=== PATIENT | female | born 1950 | race Caucasian/White ===

== ENCOUNTER 2018-07-04 11:38 | Inpatient (IN) | payer MEDICARE, OTHER ==
[~2018-07-04] VITALS: Ht 182.9 cm; Wt 81.6 kg
[~2018-07-04 11:38] MED LIST: ADULT LOW DOSE81 MG PO; AMBIEN 10 MG TA10 MG PO; AMBIEN 5 MG TABL5 M1 PO; CARDIZEM CD180 MG PO; CLARITIN10 MG PO; CLONIDINE0.1 PO; DEXILANT60 MG; EEMT HS 0.625-1 EACH PO; ESTRADIOL 1 MG T1 M1 TRANSDERM; FISH OIL 1,001000 M2 PO; IMDUR 30 MG TAB30 M1 PO; KLOR-CON 1010 MEQ PO; LISINOPRIL2.5 MG PO; METOPROLOL SUCC25 M1; METOPROLOL SUCC50 MG PO; MIRALAX17 GM PO; MIRALAX255 GM PO; MULTAQ 400 MG400 MG PO; MULTIVITAMINS PO; NORCO 5-325 TA1 EAC1 PO; NORVASC 2.5 MG2.5 M1 PO; NORVASC2.5 MG PO; OSCIMIN0.125 MG; PERCOCET 5-3251 EACH PO; PERCOCET 7.5-31 EACH PO; PERCOCET PO; PHOSPHA NEUTRAL1 TA1 PO; PRADAXA75 MG PO; PREBIOTIC FIBER PO; PREMARIN0.3 MG PO; PROMS25 WY RECTAL; PROPAFENONE 15150 MG PO; PROTONIX40 M1 PO; PROZAC 20 MG20 M1; PROZAC20 MG PO; RYTHMOL SR225 MG PO; SODIUM BICARBO650 M3 PO; SYMBYAX 3-25 M1 EACH PO; TOPROL XL25 MG; TUMS E.S.750 MG PO; TYLENOL325 MG PO; VITAMIN D1000 UNI1 PO; VITAMINC500 PO; WELLBUTRIN 100100 MG PO; XANAX 0.25 MG0.25 MG PO; ZEMPLAR2 MCG PO; ZOFRAN ODT4 MG DISSOLVE; ZOFRAN ODT4 MG PO; ZOFRAN8 MG PO; [UNRECOGNIZED DRUG - OTHER] TOP
[2018-07-04 11:47] VITALS: BP 162/99
[2018-07-04] MEDS ORDERED: METOPROLOL SUCC50 MG PO (12:01)
[2018-07-04] MEDS ORDERED: HYDROCHLOROTHIA25 M2 PO (12:03)
[2018-07-04] MEDS ORDERED: LYRICA25 MG PO (12:03)
[2018-07-04 12:07] LABS: URINE BILIRUBIN NEGATIVE (Negative); URINE BLOOD NEGATIVE (Negative); URINE CLARITY CLEAR; URINE COLOR YELLOW; URINE GLUCOSE-RANDOM NEGATIVE (Negative); URINE KETONES NEGATIVE (Negative); URINE LEUKOCYTES-REFLEX NEGATIVE (Negative); URINE NITRITE-REFLEX NEGATIVE (Negative); URINE PROTEIN NEGATIVE (Negative); URINE UROBILINOGEN 0.2 E.U./dl (0.2-1.0)
[2018-07-04 12:10] LABS: HEMATOCRIT 46.4 % (37.0-47.0); HEMOGLOBIN 15.5 gm/dL (12.0-15.0); MCH 30.8 pg (26.0-34.0); MCHC 33.4 g/dL (28.0-37.0); MCV 92.2 fL (80.0-100.0); MPV 7.2 fl. (7.2-11.1); NUCLEATED RBCS 0 /100WBC; PLATELET COUNT* 273 thou/uL (150-400); RBC 5.03 mil/uL (4.20-5.00); RDW-CV 15.2 % (10.5-14.5); WBC 13.6 thou/uL (4.0-11.0)
[2018-07-04 12:19] LABS: ANION GAP 4 mmol/L (7-16); BUN 29 mg/dL (7-18); CALCIUM 8.7 mg/dL (8.5-10.1); CHLORIDE 94 mmol/L (98-107); CO2 33 mmol/L (21-32); CREATININE 1.8 mg/dL (0.6-1.3); GLUCOSE 115 mg/dL (70-99); POTASSIUM 3.5 mmol/L (3.5-5.1); SODIUM 131 mmol/L (136-145)
[2018-07-04 12:23] LABS: APTT 30.3 Seconds (25.0-31.3); INR 1.1; PROTIME 10.7 Seconds (9.20-11.50)
[2018-07-04 12:31] LABS: ALBUMIN 3.9 g/dL (3.4-5.0); ALKALINE PHOSPHATASE 51 U/L (46-116); NT-PRO BRAIN NAT PEPTIDE 279 pg/mL (<300); SGOT 18 U/L (15-37); SGPT 21 U/L (30-65); TOTAL BILIRUBIN 2.3 mg/dL (<0.1-1.0); TOTAL PROTEIN 7.5 g/dL (6.4-8.2); TROPONIN-I LEVEL <0.06 ng/mL (<0.06)
[2018-07-04 12:39] LABS: ABSOLUTE EOSINOPHILS 0.1 thou/uL (0.0-0.7); ABSOLUTE LYMPHOCYTES 1.6 thou/uL (0.8-5.3); ABSOLUTE MONOCYTES 0.7 thou/uL (0.0-1.2); ABSOLUTE NEUTROPHILS 11.2 thou/uL (1.6-8.1); PLATELET ESTIMATE ADEQUATE
[2018-07-04 14:05] VITALS: BP 127/77
--- NOTE | 2018-07-04 14:30 | NUR ---
ADMIT NOTE - PT ADMITED TO [facility] FROM ED THIS AFTERNOON. PT C/O N/V THIS AM AND PRESENTED TO ER D/T SAME. IV L HAND 20G INFUSING NS 100ML/HR. ROUTINE VS. UP WITH ASSIST TO BR. PT C/O MILD HERNANDEZ BUT NOT REQUIRING ANY MEDICATIONS AT THIS TIME. PT ORIENTED TO ROOM AND CALL LIGHT SYSTEM.
[2018-07-04 14:39] VITALS: BP 127/81
--- NOTE | 2018-07-04 15:35 | EKG ---
[place] [address] ELECTROCARDIOGRAM REPORT Name: EZ SOLITARIO Room: [address] ADM IN M.R.#: [id number] Admission: 07/04/18 Attend Phys: Cheryl Godoy MD Discharge: Date of : 48 Report #: [id number] THIS REPORT FOR: //name// [facility] ED Test Date: 2018-07-04 Test Time: 12:34:42 Pat Name: EZ SOLITARIO Department: Room: [facility] Gender: F Toe Former: Samia BOUCHER : 1950 Requested By: Ihsan Mims Order Number: [id number] MD: Vinicius Christianson Measurements Intervals [place] Rate: 60 P: [place]: 232 QRS: -55 QRSD: 120 T: 2 QT: 438 QTc: 438 Interpretive Statements Atrial-paced rhythm Incomplete RBBB and LAFB Compared to ECG 06/06/2017 11:50:37 Incomplete right bundle-branch block now present Sinus bradycardia no longer present Electronically Signed On 07-04-2018 15:35:06 CDT by Vinicius Christianson [email or web address] <ELECTRONICALLY SIGNED> By: Vinicius Christianson MD, [facility] 07/04/18 1535 1234 1234 Vinicius Christianson MD, [facility] /EPI
[2018-07-05 00:11] VITALS: BP 101/72
[2018-07-05 04:18] LABS: HEMATOCRIT 43.5 % (37.0-47.0); HEMOGLOBIN 14.4 gm/dL (12.0-15.0); MCH 30.9 pg (26.0-34.0); MCHC 33.2 g/dL (28.0-37.0); MCV 93.1 fL (80.0-100.0); MPV 7.6 fl. (7.2-11.1); RBC 4.67 mil/uL (4.20-5.00); RDW-CV 14.9 % (10.5-14.5); WBC 6.9 thou/uL (4.0-11.0)
[2018-07-05 04:48] LABS: ALBUMIN 2.9 g/dL (3.4-5.0); CALCIUM 8.6 mg/dL (8.5-10.1); CREATININE 1.5 mg/dL (0.6-1.3); MAGNESIUM 1.7 mg/dL (1.8-2.4); TOTAL BILIRUBIN 2.3 mg/dL (<0.1-1.0)
[2018-07-05 04:50] LABS: POTASSIUM 4.6 mmol/L (3.5-5.1)
--- NOTE | 2018-07-05 06:09 | NUR ---
ASSESSMENT COMPLETE. PT SLEPT THROUGH THE NIGHT WITHOUT ANY CONCERNS. PT DENIES N/V DURING THE NIGHT. IV FLUIDS INFUSING. PT IS ON ROOM AIR. PT IS UP TO BATHROOM STANDBY ASSIST WITH STEADY GAIT. PT DENIES NEED FOR PAIN MEDICATION. SEE ASSESSMENT AND VITALS FOR OTHER DETAILS. CALL LIGHT WITHIN REACH, WILL CONTINUE PLAN OF CARE
[2018-07-05 08:00] VITALS: BP 143/88
[2018-07-05 11:33] VITALS: BP 143/88
--- NOTE | 2018-07-05 11:55 | NUR ---
PATIENT A&OX4, ROOM AIR, IV LEFT HAND FLUIDS INFUSSING. IV DISCONTINUED, CATHETER FULLY INTACT. UP AD LIV, STEADY GAIT. DENIES C/O PAIN/N/V. NO OTHER CONCERNS AT THIS TIME. PATIENT DISCHARGED, REVIEWED PAPERWORK WITH PATIENT WHILE SPOUSE AT BEDSIDE. ALL QUESTIONS AND CONCERNS ANSWERED. PATIENT LEFT UNIT AT 1145 AMBULATORY WITH ALL BELONGINGS, NOTHING LEFT BEHIND. APPROPRAITE AND COOPORATIVE WITH CARE.
== END 2018-07-05 11:45 | disposition home or self-care (01) | DRG 682 ==
LOC: M.ERS 11:38 → M.TBA-ER 13:10 → M.3W 13:10
PROVIDERS: Family Medicine; ADMIT Internal Medicine
DX: N17.9 Acute kidney failure, unspecified (principal); R65.11 Systemic inflammatory response syndrome (SIRS) of non-infectious origin with acute organ dysfunction; I48.92 Unspecified atrial flutter; E87.1 Hypo-osmolality and hyponatremia; G43.909 Migraine, unspecified, not intractable, without status migrainosus; N18.4 Chronic kidney disease, stage 4 (severe); E86.0 Dehydration; I48.91 Unspecified atrial fibrillation; G13.0 Paraneoplastic neuromyopathy and neuropathy; I10 Essential (primary) hypertension; F32.9 Major depressive disorder, single episode, unspecified; E11.42 Type 2 diabetes mellitus with diabetic polyneuropathy; H91.93 Unspecified hearing loss, bilateral; Z87.891 Personal history of nicotine dependence; Z85.43 Personal history of malignant neoplasm of ovary; Z92.21 Personal history of antineoplastic chemotherapy; Z90.710 Acquired absence of both cervix and uterus; Z93.3 Colostomy status; Z79.899 Other long term (current) drug therapy; Z88.8 Allergy status to other drugs, medicaments and biological substances; Z91.048 Other nonmedicinal substance allergy status; Z82.49 Family history of ischemic heart disease and other diseases of the circulatory system; Z83.3 Family history of diabetes mellitus

== ENCOUNTER 2019-10-13 08:38 | Observation (INO) | payer OTHER, MEDICARE ==
[~2019-10-13] VITALS: Ht 162.6 cm; Wt 84.2 kg
[2019-10-13] VITALS (7 sets, daily range): BP systolic 150–199; BP diastolic 83–113
[~2019-10-13 08:38] MED LIST changes: +CLONIDINE HCL0.1 M1 PO; +HYDROCHLOROTHIA25 M2 PO; +LYRICA25 MG PO
[2019-10-13] MEDS ORDERED: BUSPIRONE HCL10 MG PO (09:01)
[2019-10-13] MEDS ORDERED: DEPLIN-ALGAL O1 EAC1 PO (09:02)
[2019-10-13 09:03] LABS: ABSOLUTE EOSINOPHILS 0.2 thou/uL (0.0-0.7); ABSOLUTE LYMPHOCYTES 1.4 thou/uL (0.8-5.3); ABSOLUTE MONOCYTES 0.4 thou/uL (0.0-1.2); ABSOLUTE NEUTROPHILS 3.1 thou/uL (1.6-8.1); BASOPHILS 0.7 %; EOSINOPHILS 3.2 %; HEMATOCRIT 47.3 % (37.0-47.0); HEMOGLOBIN 16.3 gm/dL (12.0-15.0); LYMPHOCYTES 27.6 %; MCH 31.7 pg (26.0-34.0); MCHC 34.4 g/dL (28.0-37.0); MCV 92.1 fL (80.0-100.0); MONOCYTES 8.5 %; MPV 7.2 fl. (7.2-11.1); NUCLEATED RBCS 0 /100WBC; PLATELET COUNT* 265 thou/uL (150-400); RBC 5.14 mil/uL (4.20-5.00); RDW-CV 13.9 % (10.5-14.5); WBC 5.1 thou/uL (4.0-11.0)
[2019-10-13] MEDS ORDERED: ELIQUIS5 MG PO (09:03)
[2019-10-13] MEDS ORDERED: FLEXERIL PO (09:03)
[2019-10-13] MEDS ORDERED: MECLIZINE HCL25 M1 PO (09:04)
[2019-10-13 09:13] LABS: CALCIUM 9.8 mg/dL (8.5-10.1); POTASSIUM 3.3 mmol/L (3.5-5.1)
[2019-10-13 09:14] LABS: INR 1.1; PROTIME 11.7 Seconds (9.20-11.50)
[2019-10-13 09:18] LABS: ALBUMIN 3.5 g/dL (3.4-5.0); TOTAL BILIRUBIN 1.4 mg/dL (<0.1-1.0); TOTAL PROTEIN 7.5 g/dL (6.4-8.2)
--- NOTE | 2019-10-13 09:43 | NUR ---
PT PACE MAKER INFO FAXED TO MRI.
--- NOTE | 2019-10-13 11:42 | NUR ---
ADMIT TO 221 TELEPHONE REPORT GIVEN PRIOR TO ARRIVAL PATIENT ORIENTED TO AND CALL LIGHT PATIENT DENIES PAIN ASSMNT AND HX TO BE COMPLETED
--- NOTE | 2019-10-13 13:42 | 2DMMODE ---
[place] [address] 2 D/M-MODE ECHOCARDIOGRAM Name: EZ SOLITARIO Room: [address] IN [facility]#: [id number] Admission: 10/13/19 Attend Phys: Amelia santana Sa Discharge: Date of : 48 Date of Service: 10/13/19 1342 Report #: [id number] THIS REPORT FOR: //name// APPROVED REPORT Study performed: 10/13/2019 11:05:45 EXAM: Comprehensive 2D, Doppler, and color-flow Echocardiogram Patient Location: In-Patient Room #: [facility] Status: routine BSA: 2.01 HR: 64 bpm BP: 160/83 mmHg Rhythm: NSR Other Information Study Quality: Good Indications CVA/TIA Echo Enhancing Agent Indication: Rule out Shunt Agent(s) / Amount(s) Used: Agitated Saline 10 cc 2D Dimensions IVSd: 9.96 (7-11mm) LVOT Diam: 19.08 (18-24mm) LVDd: 44.53 mm PWd: 10.12 (7-11mm) Ascending Ao: 32.32 (22-36mm) LVDs: 27.73 (25-40mm) Aortic Root: 31.21 mm Volumes Left Atrial Volume (Systole) LA ESV Index: 22.30 mL/m2 Aortic Valve AoV Peak Ty.: 1.41 m/s AO Peak Gr.: 7.97 mmHg LVOT Max P.14 mmHg AO Mean Gr.: 4.25 mmHg LVOT Mean P.39 mmHg LVOT Max V: 1.13 m/s AO V2 VTI: 30.28 cm LVOT Mean V: 0.70 m/s SABRINA (VTI): 2.53 cm2 LVOT V1 VTI: 26.78 [place] [address] 2 D/M-MODE ECHOCARDIOGRAM Name: EZ SOLITARIO Room: [address] IN .R.#: [id number] Admission: 10/13/19 Attend Phys: Amelia santana Sa Discharge: Date of : 48 Date of Service: 10/13/19 1342 Report #: [id number] Mitral Valve E/A Ratio: 0.69 MV Decel. Time: 182.33 ms MV E Max Ty.: 0.77 m/s MV PHT: 52.88 ms MVA (PHT): 4.16 cm2 TDI E/Lateral E': 8.56 E/Medial E': 8.56 Medial E' Ty.: 0.09 m/s Lateral E' Ty.: 0.09 m/s Pulmonary Valve PV Peak Ty.: 0.79 m/s PV Peak Gr.: 2.51 mmHg Tricuspid Valve RAP Estimate: 5.00 mmHg TR Peak Gr.: 18.44 mmHg RVSP: 23.00 mmHg PA Pressure: 23.00 mmHg Left Ventricle The left ventricle is normal size. There is normal LV segmental wall motion. Mild concentric left ventricular hypertrophy. Left ventricular systolic function is normal. The left ventricular ejection fraction is within the normal range. LVEF is 55-60%. Grade I - abnormal relaxation pattern. Right Ventricle The right ventricle is normal size. The right ventricular systolic function is normal. Pacemaker lead is present in the right ventricle. Atria The left atrium size is normal. Interatrial septum is intact without evidence of ASD or PFO. The right atrium size is normal. Aortic Valve The aortic valve is normal in structure. No aortic regurgitation is present. There is no aortic valvular stenosis. Mitral Valve The mitral valve is normal in structure. Mild mitral regurgitation. No evidence of mitral valve stenosis. Tricuspid Valve The tricuspid valve is normal in structure. Mild tricuspid regurgitation. [place] [address] 2 D/M-MODE ECHOCARDIOGRAM Name: ALTAFEZ Room: [address] IN M.R.#: [id number] Admission: 10/13/19 Attend Phys: Amelia santana Sa Discharge: Date of : 48 Date of Service: 10/13/19 1342 Report #: [id number] Pulmonic Valve The pulmonary valve is normal in structure. Trace pulmonic regurgitation. Great Vessels The aortic root is normal in size. IVC is normal in size and collapses >50% with inspiration. Pericardium There is no pericardial effusion. <Conclusion> The left ventricle is normal size Mild Left ventricular hypertrophy is noted Left ventricular systolic function is normal. The left ventricular ejection fraction is within the normal range. LVEF is 55-60%. Grade I - abnormal relaxation pattern. The right ventricle is normal size. The left atrium size is normal. The aortic valve is normal in structure. The mitral valve is normal in structure. Mild mitral regurgitation. The tricuspid valve is normal in structure. Mild tricuspid regurgitation. No pulmonary hypertension. IVC is normal in size and collapses >50% with inspiration. There is no pericardial effusion. There is normal LV segmental wall motion. Interatrial septum is intact without evidence of ASD or PFO. <ELECTRONICALLY SIGNED> By: Ryder Story MD, FACC 10/13/19 134 41 41 Ryder Story MD, FACC /INF
--- NOTE | 2019-10-13 15:40 | EKG ---
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: : 1950 Requested By: Bandar Mehta Order Number: [id number] : Ryder Story Measurements Intervals [place] Rate: 93 P: [place]: 201 QRS: -72 QRSD: 103 T: 73 QT: 388 QTc: 483 Interpretive Statements Atrial-paced complexes Left anterior fascicular block Abnormal R-wave progression, late transition Probable left ventricular hypertrophy Baseline wander in lead(s) I,III,aVL Compared to ECG 07/04/2018 12:34:42 ST (T wave) deviation now present Atrial pacing persists Incomplete right bundle-branch block no longer present Electronically Signed On 10-13-2019 15:40:28 ASSISTANT BRANCH MANAGER by Ryder Story [email or web address] <ELECTRONICALLY SIGNED> By: Ryder Story MD, [facility] 10/13/19 1540 0843 0843 Ryder Story MD, [facility] /EPI
--- NOTE | 2019-10-13 16:30 | NUR ---
ASSUMED CARE OF PT THIS SHIFT AROUND 1330- DATA REVIEWER IN PLACE ORDERED, A-PACED- IV TO RIGHT AC INTACT AND SL- BED SIDE SWALLOW COMPLETED WITH NO ABNORMALS NOTED- K+ NOTED AT 3.3, TO BE REPLACED PER PROTOCOL- US CAROTIDS ORDERED AND COMPLETED , RESULTS PENDING- CALL LIGHT AND PERSONAL BELONGINGS WITH IN REACH- PT MAKES NEEDS KNOWN- ALL NEEDS MET AT THIS TIME-WCTM
[2019-10-14] VITALS: BP 132/71
[2019-10-14 04:00] VITALS: BP 179/93
[2019-10-14 05:39] LABS: ALBUMIN 3.5 g/dL (3.4-5.0); ALKALINE PHOSPHATASE 64 U/L (46-116); ANION GAP 8 mmol/L (7-16); BUN 24 mg/dL (7-18); CALCIUM 9.7 mg/dL (8.5-10.1); CHLORIDE 101 mmol/L (98-107); CHOLESTEROL 160 mg/dL (<200); CO2 30 mmol/L (21-32); CREATININE 1.9 mg/dL (0.6-1.3); GLUCOSE 122 mg/dL (70-99); HDL CHOLESTEROL 77 mg/dL (>40); LDL CHOLESTEROL 74 mg/dL (<100); POTASSIUM 3.6 mmol/L (3.5-5.1); SGOT 24 U/L (15-37); SGPT 27 U/L (30-65); SODIUM 139 mmol/L (136-145); TC:HDL 2.1 Ratio (Not establshd); TOTAL BILIRUBIN 1.7 mg/dL (<0.1-1.0); TOTAL PROTEIN 7.5 g/dL (6.4-8.2); TRIGLYCERIDE 49 mg/dL (<150); VLDL 10 mg/dL (<40)
[2019-10-14 06:07] LABS: SERUM ASSESSMENT Clear
--- NOTE | 2019-10-14 07:04 | NUR ---
ASSUMED CARE OF PT AFTER REPORT AT 1930. PT A&OX4. VSS. PHYSICAL ASSESSMENT COMPLETED AND CHARTED. PT ON RA. PT TRACING APACED ON TELE. PT UPADLIB TO RESTROOM. [facility] CHARTED. PT WITH LACERATION ON LEFT MIDDLE FINGER-PHOTOGRAPH TAKEN. PT CLAIMED SHE HAS ALLERGIES WITH MANAGER MARKET INTELLIGENCE LEADS-HYPOALLERGENIC LEADS WERE USED. PT POTASSIUM 3.3-ELECTROLYTE PROTOCOL IN PLACE. PT COMPLAINED OF HEADACHE, PERSISTENT VOMITING-PROVIDER MADE AWARE WITH NEW ORDERS WITH NO RELIEF. CALL LIGHT WITHIN REACH.
[2019-10-14 08:11] VITALS: BP 182/104
--- NOTE | 2019-10-14 09:53 | NUR ---
ASSUMED CARE OF PT THIS AM AROUND 714- GENERAL NEUROLOGIST NOTED IN PLACE TRACING A-PACED, AND HAS SINCE BEEN D/C'D R/T ALLERY AND PT REQUEST- PT A&O X4- CONTINENT OF B/B- UP AD-LIV IN ROOM, STEADY GAIT NOTED-LCTA/DIMINISHED IN BASES, RESP EVEN AND UN-LABORED- VSS, O2 SAT 99% ON RA- ABD SOFT/FLAT/NON-TENDER, BS X4 QUADS- LAST BM REPORTED X2 DAY AGO-IV NOTED TO RIGHT AC INTACT AND SL- PT REPORTED WITH NAUSEA/VOMITING THIS AM- ORDERED COMPAZINE, FENT, SCOP PATCH TO LEFT EAR, AND BENADRYL GIVEN PRESCIBED WITH LITTLE EFFECTIVENESS- CLOIDINE ORDERED AND GIVEN THIS AM WELL XANAX PER PT REQUEST- PT NOTED TO BE UPSET WITH LITTLE EFFECTIVENESS OF TX AND ALLERGY R/T LEADS AND REQUESTING TO GO HOME THIS SHIFT- NEURO IN TO SEE PT AND ADDRESS PT COMPLAINTS OF WITH D/C PER PT REQUEST WITH NEEDED MRI'S TO BE SCHEDULED OP AND FOLLOW UP WITH NEURO OP- NOTIFED AND OKAY WITH PLAN IF NEEDED- IVF ORDERED, REFUSED PER PT AT THIS TIME- CALL LIGHT AND PERSONAL BELONGINGS WITH IN REACH- PT MAKES NEEDS KNOWN- ALL NEEDS MET AT THIS TIME-WCTM
[2019-10-14 11:17] VITALS: BP 182/104
[2019-10-15 02:12] LABS: GLYCOHEMOGLOBIN (HGB A1C) 5.5 % (4.8-5.6)
== END 2019-10-14 12:00 | disposition home or self-care (01) ==
LOC: M.ERS 08:38 → M.TBA-ER 09:37 → M.2W 09:37
PROVIDERS: Emergency Medicine Emergency Medical Services; ADMIT Family Medicine
DX: G90.9 Disorder of the autonomic nervous system, unspecified (principal); G43.909 Migraine, unspecified, not intractable, without status migrainosus; I48.20 Chronic atrial fibrillation, unspecified; D68.69 Other thrombophilia; I12.9 Hypertensive chronic kidney disease with stage 1 through stage 4 chronic kidney disease, or unspecified chronic kidney disease; N18.4 Chronic kidney disease, stage 4 (severe); E87.6 Hypokalemia; G50.0 Trigeminal neuralgia; K31.84 Gastroparesis; F32.9 Major depressive disorder, single episode, unspecified; G25.0 Essential tremor; Z85.43 Personal history of malignant neoplasm of ovary; R47.1 Dysarthria and anarthria; Z87.891 Personal history of nicotine dependence; Z79.01 Long term (current) use of anticoagulants; Z79.899 Other long term (current) drug therapy

== ENCOUNTER 2020-01-11 15:52 | Emergency (ER) | payer OTHER, MEDICARE ==
[~2020-01-11] VITALS: Ht 182.9 cm; Wt 77.1 kg
[~2020-01-11 15:52] MED LIST changes: +BUSPIRONE HCL10 MG PO; +DEPLIN-ALGAL O1 EAC1 PO; +ELIQUIS5 MG PO; +FLEXERIL PO; +MECLIZINE HCL25 M1 PO
[2020-01-11] MEDS ORDERED: LYRICA25 MG PO (16:07)
[2020-01-11 16:24] LABS: ABSOLUTE EOSINOPHILS 0.1 thou/uL (0.0-0.7); ABSOLUTE LYMPHOCYTES 1.7 thou/uL (0.8-5.3); ABSOLUTE MONOCYTES 0.5 thou/uL (0.0-1.2); BASOPHILS 0.6 %; HEMATOCRIT 43.8 % (37.0-47.0); HEMOGLOBIN 14.7 gm/dL (12.0-15.0); LYMPHOCYTES 23.5 %; MCH 31.3 pg (26.0-34.0); MCHC 33.5 g/dL (28.0-37.0); MCV 93.6 fL (80.0-100.0); MONOCYTES 7.1 %; MPV 7.7 fl. (7.2-11.1); NUCLEATED RBCS 0 /100WBC; PLATELET COUNT* 251 thou/uL (150-400); POLYS 67.8 %; RBC 4.68 mil/uL (4.20-5.00); RDW-CV 14.8 % (10.5-14.5); WBC 7.4 thou/uL (4.0-11.0)
[2020-01-11 16:34] LABS: CALCIUM 8.8 mg/dL (8.5-10.1); CREATININE 2.1 mg/dL (0.6-1.3); POTASSIUM 3.4 mmol/L (3.5-5.1)
[2020-01-11 16:37] LABS: APTT 33.6 Seconds (25.0-31.3); INR 1.1; PROTIME 10.9 Seconds (9.20-11.50)
[2020-01-11 16:47] LABS: ALBUMIN 3.1 g/dL (3.4-5.0); MAGNESIUM 1.9 mg/dL (1.8-2.4); TOTAL BILIRUBIN 0.5 mg/dL (<0.1-1.0); TOTAL PROTEIN 7.1 g/dL (6.4-8.2)
[2020-01-11 17:22] VITALS: BP 173/90
--- NOTE | 2020-01-12 11:36 | EKG ---
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1950 Requested By: Ihsan Mims Order Number: [id number] MD: Ryder Story Measurements Intervals [place] Rate: 86 P: [place]: 223 QRS: -56 QRSD: 161 T: 17 QT: 434 QTc: 519 Interpretive Statements Atrial-paced complexes Prolonged ME interval RBBB and LAFB Baseline wander in lead(s) V1 Compared to ECG 10/13/2019 08:43:23 First degree AV block now present Right bundle-branch block now present Electronically Signed On 01-12-2020 11:35:18 VIDEO POKER FLOORMAN by Ryder Story [email or web address] <ELECTRONICALLY SIGNED> By: Ryder Story MD, FAC 01/12/20 1135 1556 1556 Ryder Story MD, FAC /EPI
== END 2020-01-11 17:23 | disposition home or self-care (01) ==
LOC: M.ERS 15:52
PROVIDERS: Family Medicine
DX: R07.89 Other chest pain (principal); I10 Essential (primary) hypertension; Z88.8 Allergy status to other drugs, medicaments and biological substances

== ENCOUNTER 2020-04-17 19:02 | Emergency (ER) | payer OTHER, MEDICARE ==
[~2020-04-17] VITALS: Ht 182.9 cm; Wt 86.2 kg
[2020-04-17 19:19] LABS: HEMATOCRIT 51.2 % (37.0-47.0); HEMOGLOBIN 17.2 gm/dL (12.0-15.0); MCH 31.2 pg (26.0-34.0); MCHC 33.6 g/dL (28.0-37.0); MCV 92.6 fL (80.0-100.0); MPV 7.6 fl. (7.2-11.1); NUCLEATED RBCS 0 /100WBC; PLATELET COUNT* 323 thou/uL (150-400); RBC 5.52 mil/uL (4.20-5.00); RDW-CV 14.6 % (10.5-14.5); WBC 15.3 thou/uL (4.0-11.0)
[2020-04-17 19:28] LABS: CALCIUM 9.2 mg/dL (8.5-10.1); CREATININE 2.3 mg/dL (0.6-1.3); POTASSIUM 3.4 mmol/L (3.5-5.1)
[2020-04-17 19:39] LABS: ALBUMIN 3.7 g/dL (3.4-5.0); MAGNESIUM 2.1 mg/dL (1.8-2.4); TOTAL BILIRUBIN 0.7 mg/dL (<0.1-1.0); TOTAL PROTEIN 8.2 g/dL (6.4-8.2)
[2020-04-17 19:55] LABS: ABSOLUTE EOSINOPHILS 0.2 thou/uL (0.0-0.7); ABSOLUTE LYMPHOCYTES 3.2 thou/uL (0.8-5.3); ABSOLUTE MONOCYTES 0.6 thou/uL (0.0-1.2); ABSOLUTE NEUTROPHILS 11.3 thou/uL (1.6-8.1); PLATELET ESTIMATE ADEQUATE
[2020-04-17 22:20] VITALS: BP 130/70
--- NOTE | 2020-04-18 08:47 | EKG ---
[place] [address] ELECTROCARDIOGRAM REPORT Name: EZ SOLITARIO Room: [facility]#: [id number] Admission: 04/17/20 Attend Phys: Discharge: 04/17/20 Date of : 48 Date of Service: 04/17/201904 Report #: [id number] THIS REPORT FOR: //name// [facility] ED Test Date: 2020-04-17 Test Time: 19:05:44 Pat Name: EZ SOLITARIO Department: Room: Gender: F Radiology Ct Technologist: : 1950 Requested By: Bandar Mehta Order Number: [id number] MD: Dax Knox Measurements Intervals [place] Rate: 95 P: [place]: 177 QRS: -85 QRSD: 171 T: 33 QT: 393 QTc: 494 Interpretive Statements Atrial-paced complexes RBBB and LAFB Compared to ECG 01/11/2020 15:56:32 First degree AV block no longer present Electronically Signed On 04-18-2020 8:45:26 CDT by Dax Knox [email or web address] <ELECTRONICALLY SIGNED> By: Dax Knox MD, FACC 04/18/20 0845 1905 1905 Dax Knox MD, [facility] /EPI
== END 2020-04-17 22:20 | disposition home or self-care (01) ==
LOC: M.ERS 19:02
PROVIDERS: Emergency Medicine Emergency Medical Services
DX: R53.1 Weakness (principal); I12.9 Hypertensive chronic kidney disease with stage 1 through stage 4 chronic kidney disease, or unspecified chronic kidney disease; N18.4 Chronic kidney disease, stage 4 (severe); G62.9 Polyneuropathy, unspecified; Z95.0 Presence of cardiac pacemaker; Z85.43 Personal history of malignant neoplasm of ovary; Z91.048 Other nonmedicinal substance allergy status; Z88.8 Allergy status to other drugs, medicaments and biological substances

== ENCOUNTER 2021-06-26 12:04 | Inpatient (IN) | payer MEDICARE, OTHER ==
[~2021-06-26] VITALS: Ht 182.9 cm; Wt 98.4 kg
[2021-06-26 12:11] VITALS: BP 179/104
[2021-06-26] MEDS ORDERED: ABILIFY 2 MG2 M1 PO (12:17)
[2021-06-26] MEDS ORDERED: ASA81BEC PO (12:17)
[2021-06-26] MEDS ORDERED: CHLORTHALIDONE25 MG PO (12:17)
[2021-06-26 12:52] LABS: ABSOLUTE LYMPHOCYTES 0.9 thou/uL (0.8-5.3); ABSOLUTE MONOCYTES 0.6 thou/uL (0.0-1.2); ABSOLUTE NEUTROPHILS 11.5 thou/uL (1.6-8.1); BASOPHILS 0.3 %; HEMOGLOBIN 14.4 gm/dL (12.0-15.0); MCH 29.3 pg (26.0-34.0); MCHC 32.7 g/dL (28.0-37.0); MCV 89.4 fL (80.0-100.0); NUCLEATED RBCS 0 /100WBC; PLATELET COUNT* 365 thou/uL (150-400); RBC 4.92 mil/uL (4.20-5.00); RDW-CV 14.5 % (10.5-14.5); WBC 13.1 thou/uL (4.0-11.0)
[2021-06-26 13:01] LABS: CALCIUM 9.9 mg/dL (8.5-10.1); CREATININE 2.7 mg/dL (0.6-1.3); POTASSIUM 3.3 mmol/L (3.5-5.1)
[2021-06-26 13:06] LABS: ALBUMIN 4.4 g/dL (3.4-5.0); TOTAL BILIRUBIN 0.9 mg/dL (<0.1-1.0); TOTAL PROTEIN 8.5 g/dL (6.4-8.2)
--- NOTE | 2021-06-26 13:33 | EKG ---
[place] [address] ELECTROCARDIOGRAM REPORT Name: EZ SOLITARIO Room: [facility]#: [id number] Admission: 06/26/21 Attend Phys: Discharge: Date of : 48 Date of Service: 06/26/21 1209 Report #: [id number] THIS REPORT FOR: //name// [facility] ED Test Date: 2021-06-26 Test Time: 12:09:39 Pat Name: EZ SOLITARIO Department: Room: Gender: Builder'S Labourer: DAVIES : 1950 Requested By: Harvey Barrientos Order Number: [id number] MD: Vinicius Christianson Measurements Intervals [place] Rate: 67 P: [place]: 193 QRS: -75 QRSD: 177 T: 13 QT: 470 QTc: 497 Interpretive Statements Atrial-paced rhythm RBBB and LAFB Compared to ECG 04/17/2020 19:05:44 No significant changes Electronically Signed On 06-26-2021 13:33:06 CDT by Vinicius Christianson [email or web address] <ELECTRONICALLY SIGNED> By: Vinicius Christianson MD, [facility] 06/26/21 1333 1209 1209 Vinicius Christianson MD, [facility] /EPI
[2021-06-26 13:34] LABS: PLATELET ESTIMATE ADEQUATE
[2021-06-26 13:46] LABS: BANDS ND %
[2021-06-26 15:28] VITALS: BP 96/67
[2021-06-26 15:48] VITALS: BP 100/73
[2021-06-26] MEDS ORDERED: SERTRALINE HCL100 MG (16:36)
[2021-06-26] MEDS ORDERED: AMIODARONE HCL400 MG PO (16:39)
[2021-06-26] MEDS ORDERED: CLONIDINE HCL0.1 MG PO (16:41)
[2021-06-26] MEDS ORDERED: ROXIFOL-D TA500 UNIT PO (16:46)
[2021-06-26] MEDS ORDERED: VITAMIN C500 M1 PO (16:48)
[2021-06-27] VITALS: BP 118/66
[2021-06-27 04:00] VITALS: BP 125/75
[2021-06-27 08:00] VITALS: BP 97/66
[2021-06-27 12:30] VITALS: BP 94/63
--- NOTE | 2021-06-27 14:10 | 2DMMODE ---
[place] [address] 2 D/M-MODE ECHOCARDIOGRAM Name: EZ SOLITARIO Room: [address] ADM IN .R.#: [id number] Admission: 06/27/21 Attend Phys: Alverto Jones Discharge: Date of : 48 Date of Service: 06/27/21 1409 Report #: [id number] THIS REPORT FOR: cc: Yvonne Wesley MD, Ghazal A. MD Blick, David R. MD [facility] ~ ADDENDUM APPROVED REPORT Study performed: 06/27/2021 11:08:35 EXAM: Comprehensive 2D, Doppler, and color-flow Echocardiogram Patient Location: In-Patient Room #: [facility] Status: routine BSA: 2.13 HR: 76 bpm BP: 97/66 mmHg Rhythm: NSR Other Information Study Quality: Good Indications Chest Pain 2D Dimensions IVSd: 10.28 (7-11mm) LVOT Diam: 20.37 (18-24mm) LVDd: 44.59 mm PWd: 9.22 (7-11mm) Ascending Ao: 34.79 (22-36mm) LVDs: 35.50 (25-40mm) Aortic Root: 32.41 mm Aortic Valve AoV Peak Ty.: 1.45 m/s AO Peak Gr.: 8.44 mmHg LVOT Max P.53 mmHg AO Mean Gr.: 4.99 mmHg LVOT Mean P.46 mmHg LVOT Max V: 1.28 m/s AO V2 VTI: 25.25 cm LVOT Mean V: 0.87 m/s SABRINA (VTI): 2.27 cm2 LVOT V1 VTI: 17.61 cm Mitral Valve MV Mean Gr.: 1.34 mmHg E/A Ratio: 0.57 MV Decel. Time: 559.82 ms MV E Max Ty.: 0.52 m/[place] [address] 2 D/M-MODE ECHOCARDIOGRAM Name: EZ SOLITARIO Room: [address] IN .R.#: [id number] Admission: 06/27/21 Attend Phys: Alverto Jones Discharge: Date of : 48 Date of Service: 06/27/21 1409 Report #: [id number] MV PHT: 162.35 ms MVA (PHT): 1.36 cm2 TDI E/Medial E': 6.50 Medial E' Ty.: 0.08 m/s Pulmonary Valve PV Peak Ty.: 0.83 m/s PV Peak Gr.: 2.74 mmHg Tricuspid Valve RAP Estimate: 5.00 mmHg TR Peak Gr.: 12.91 mmHg RVSP: 17.00 mmHg PA Pressure: 17.00 mmHg Left Ventricle The left ventricle is normal size. There is normal LV segmental wall motion. There is normal left ventricular wall thickness. Left ventricular systolic function is normal. The left ventricular ejection fraction is within the normal range. LVEF is 60-65%. Grade I - abnormal relaxation pattern. Right Ventricle The right ventricle is normal size. The right ventricular systolic function is normal. Pacemaker lead is present in the right ventricle. Atria The left atrium size is normal. The right atrium size is normal. Aortic Valve The aortic valve is normal in structure. No aortic regurgitation is present. There is no aortic valvular stenosis. Mitral Valve The mitral valve is normal in structure. There is no mitral valve regurgitation noted. No evidence of mitral valve stenosis. Tricuspid Valve The tricuspid valve is normal in structure. Mild tricuspid regurgitation. No pulmonary hypertension. Pulmonic Valve The pulmonary valve is normal in structure. There is no pulmonic [place] [address] 2 D/M-MODE ECHOCARDIOGRAM Name: ALTAFEZ ASTORGA Room: [address] IN .R.#: [id number] Admission: 06/27/21 Attend Phys: Alverto Jones Discharge: Date of : 48 Date of Service: 06/27/21 1409 Report #: [id number] Great Vessels The aortic root is normal in size. IVC is normal in size and collapses >50% with inspiration. Pericardium Moderate No echo indications of pericardial tamponade. circumferential pericardial effusion. <Conclusion> LVEF is 60-65%. Moderate pericardia effusion No echo indications of pericardial tamponade. circumferential pericardial effusion. <ELECTRONICALLY SIGNED> By: Vinicius Christianson MD, [facility] 06/27/21 1409 1409 1409 Vinicius Christianson MD, FACC /INF
--- NOTE | 2021-06-27 14:27 | NUR ---
Pt is A&O. Resides at home with . Independent. No DME. No hx of HH or SNF. Goal is home at dc, no needs anticipated. Cards following. Renal consulted. Manage pain. Anticipate weekend dc.
[2021-06-27 16:00] VITALS: BP 83/52
--- NOTE | 2021-06-27 17:52 | CON ---
[address] [address] CONSULTATION Name: EZ SOLITARIO Room: [address] IN M.R.#: [id number] Admission: 06/27/21 Attend Phys: Ernesto Pichardo Discharge: Date of : 48 Report #: [id number] THIS REPORT FOR: cc: Yvonne Wesley MD, Ghazal A. MD Blick,Vinicius Briones MD [facility] ~ DATE OF CONSULTATION: 06/27/2021 HISTORY OF PRESENT ILLNESS: The patient is a 71-year-old white female who I was asked to see in the hospital today after she complained of chest pain. The patient has an extensive and complicated past medical history. She was diagnosed with ovarian cancer in 2001. She underwent resection. She had recurrence in 2006. Eventually treated with chemotherapy and required a colostomy at that period of time that subsequently reversed. She was found to have breast cancer and underwent mastectomy in 12/2020. Because of BRCA1 variant, she underwent prophylactic right mastectomy as well. She was on Eliquis because of a previous history of atrial fibrillation and had a hematoma requiring evacuation at in May. From a heart standpoint, she has had a long history of paroxysmal atrial fibrillation. She was on propafenone, flecainide in the past, which was discontinued because of QRS widening. She was on Multaq, but because of recurrent atrial fibrillation, she was finally started on amiodarone in [address] Cordon in EP clinic at [facility]. Because of symptomatic bradycardia, Dr. Cordon implanted a [employer] Dario pacemaker in 11/2017. He actually just saw in the Cardiology clinic 2 weeks ago and recommended discontinuing Eliquis and starting aspirin 81 mg a day. She is not very active at this time. She has had multiple cardiac workups in the past including a nuclear stress test here at [facility] in 2016 that showed an ejection fraction of 70% with no evidence of ischemia. Her last echocardiogram here at [facility] in 2018 showed an ejection fraction of 60% with no significant valvular abnormalities. Her last echocardiogram in 02/2021 showed an ejection fraction of 60%. The patient was doing well until 2 nights ago, when she is watching television, she felt a discomfort in his chest. It is worse when she took a deep breath or moves. She went to bed, but because of chest pain, she finally came to the hospital yesterday and was admitted for further evaluation and treatment. She notes the pain goes into her back. It is not related to exertion or meals. She has had no bleeding. She has had nausea, but no vomiting. She denied any fever. She has had no diaphoresis. She denies any shortness of breath. She notes occasional skipped heartbeat, but no prolonged palpitations or syncope. PAST MEDICAL HISTORY: Otherwise, she has had several previous surgeries including appendectomy, cataract extraction, reversal of colostomy, hysterectomy, hernia repair, shoulder surgery. She has a long history of hypertension. No [place] [address] CONSULTATION Name: EZ SOLITARIO Room: [address] IN [facility].#: [id number] Admission: 06/27/21 Attend Phys: Alverto F. Sudholt, D Discharge: Date of : 48 Report #: [id number] CURRENT MEDICATIONS: Include Xanax, amiodarone 100 mg a day, chlorthalidone, Antivert, Zoloft, Micardis, aspirin 81 mg a day. ALLERGIES: SHE HAS PREVIOUS INTOLERANCE TO REGLAN AND ISOSORBIDE. FAMILY HISTORY: Mother had a heart attack. SOCIAL HISTORY: She is . She and her live here in [place]. She does not work at this time. Quit smoking in 1986. No alcohol abuse. REVIEW OF SYSTEMS: No history of stroke, asthma, liver disease, kidney disease, chronic skin condition. She has a history of depression in the past. PHYSICAL EXAMINATION: GENERAL: Revealed elderly male who appeared in no distress. VITAL SIGNS: Blood pressure was 100/60, pulse 70. She is afebrile. HEENT: She was anicteric. Conjunctivae pink. Mucous membranes moist. NECK: Veins not distended. No carotid bruits. NECK: Supple. CHEST: Clear to auscultation. HEART: Regular rate and rhythm without rub. ABDOMEN: Soft. EXTREMITIES: Had no edema. SKIN: Cool and dry. NEUROLOGIC: Nonfocal. LABORATORY DATA: Her ECG on admission showed an atrial paced rhythm, left anterior fascicular block and right bundle block, no acute ST segment changes were noted on the monitor. She remains atrial paced. Her workup, she actually had a chest x-ray yesterday in the Emergency Room that showed normal heart size and clear lung ty. She actually had a CT scan of the chest using a PE protocol that showed some atelectasis, cardiomegaly, small pericardial effusion, coronary artery calcifications, no effusion. There was no pulmonary embolus. Carotid Doppler study in 2019 showed no significant stenosis, thyroid nodule was noted. Her lab work; sodium 138, potassium 3.3, creatinine 2.7. Her liver function studies were normal. Troponins were all less than 0.06. Her white blood cell count 13.1, hemoglobin 14.4. Her COVID antigen stat test was negative. IMPRESSION AND RECOMMENDATIONS: 1. Chest pain. Suspect noncardiac. Recommend no further cardiac evaluation. Suspect pleurisy. 2. History of atrial fibrillation. Currently, atrial paced. On amiodarone. The patient was taken off of Eliquis [place] [address] CONSULTATION Name: EZ SOLITARIO Room: [address] IN [facility]#: [id number] Admission: 06/27/21 Attend Phys: Ernesto Pichardo Discharge: Date of : 48 Report #: [id number] 3. History of ovarian cancer with previous chemotherapy. 4. Recent bilateral mastectomy for breast cancer. 5. Hypertension. The patient is on ARB and diuretic. 6. History of depression. 6. Previous tobacco abuse. <ELECTRONICALLY SIGNED> By: Vinicius Christianson MD, FACC 06/27/21 1752 1119 1252Dcameron Christianson MD, FACC /nt
[2021-06-27 20:00] VITALS: BP 97/64
[2021-06-28 00:18] VITALS: BP 126/75
[2021-06-28 04:01] VITALS: BP 133/69
[2021-06-28 05:15] LABS: HEMATOCRIT 32.7 % (37.0-47.0); MCH 29.3 pg (26.0-34.0); MCHC 32.7 g/dL (28.0-37.0); MCV 89.7 fL (80.0-100.0); MPV 7.7 fl. (7.2-11.1); RBC 3.64 mil/uL (4.20-5.00); RDW-CV 14.8 % (10.5-14.5); WBC 8.3 thou/uL (4.0-11.0)
[2021-06-28 05:33] LABS: HEMOGLOBIN 10.7 gm/dL (12.0-15.0)
[2021-06-28 05:46] LABS: CALCIUM 8.6 mg/dL (8.5-10.1); CREATININE 2.6 mg/dL (0.6-1.3)
[2021-06-28 05:55] LABS: POTASSIUM 2.9 mmol/L (3.5-5.1)
[2021-06-28 08:00] VITALS: BP 112/77
--- NOTE | 2021-06-28 11:25 | EKG ---
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 : 1950 Requested By: Vinicius Christianson Order Number: [id number] Reading MD: Vinicius Christianson Measurements Intervals [place] Rate: 133 P: [place]: QRS: -68 QRSD: 163 T: 62 QT: 383 QTc: 570 Interpretive Statements Atrial fibrillation RBBB and LAFB Compared to ECG 06/26/2021 12:09:39 Atrial-paced complex(es) or rhythm no longer present Ventricular-paced complex(es) or rhythm no longer present Electronically Signed On 06-28-2021 11:25:01 CDT by Vinicius Christianson [email or web address] <ELECTRONICALLY SIGNED> By: Vinicius Christianson MD, [facility] 06/28/21 1125 0857 0857 Vinicius Christianson MD, [facility] /EPI
[2021-06-28 12:00] VITALS: BP 102/66
[2021-06-28 14:11] LABS: CALCIUM 8.8 mg/dL (8.5-10.1); CREATININE 2.2 mg/dL (0.6-1.3); POTASSIUM 3.4 mmol/L (3.5-5.1)
[2021-06-28 16:00] VITALS: BP 97/60
--- NOTE | 2021-06-28 20:39 | NUR ---
doctor ordered cardizem drip for the patient . patient blood pressure low , as per doctor to hold the cardizem drip until the blood pressure systolic will be over 95. patient later converted without drips . doctor notified.
[2021-06-28 22:00] VITALS: BP 129/80
[2021-06-29 00:43] VITALS: BP 106/61
[2021-06-29 05:27] LABS: CALCIUM 8.4 mg/dL (8.5-10.1); CREATININE 2.4 mg/dL (0.6-1.3); POTASSIUM 3.2 mmol/L (3.5-5.1)
[2021-06-29 05:55] VITALS: BP 122/70
[2021-06-29 08:00] VITALS: BP 99/57
--- NOTE | 2021-06-29 09:00 | NUR ---
PATIENT HAS SLEPT WELL THROUGHOUT MOST OF THE NIGHT. VSS ON RA, ALTHOUGH SLIGHTLY ELEVATED TEMP. NOTIFIED AND NEW ORDER GIVEN FOR TYLENOL Q 6HRS PRN. MEDICATIONS GIVEN ORDERED AND CHARTED. PATIENT HAS BEEN UP WITH SBA TO THE BSC BUT BEDREST DURING THE SHIFT. PATIENT HAS REMAINED A-PACED ON DISTRICT TRAFFIC CHIEF AND BP/PULSE GOOD. IV IN RIGHT AC-SL THIS AM. REPORT GIVEN TO DAY SHIFT NURSE THIS AM. PATIENT INSTRUCTED TO USE CALL LIGHT WHEN NEEDING ASSISTANCE. HOURLY ROUNDS MADE. WILL CONTINUE WITH PLAN OF CARE AND NURSING TO MONITOR.
[2021-06-29 12:00] VITALS: BP 141/75
[2021-06-29 21:30] VITALS: BP 147/84
[2021-06-30 01:45] VITALS: BP 115/63
[2021-06-30 05:00] LABS: CREATININE 2.6 mg/dL (0.6-1.3)
[2021-06-30 05:49] VITALS: BP 122/70
[2021-06-30 08:00] VITALS: BP 136/70
[2021-06-30] MEDS ORDERED: CHLORTHALIDONE25 MG PO (08:37)
--- NOTE | 2021-06-30 08:38 | NUR ---
PATIENT SLEPT WELL THROUGHOUT MOST OF THE NIGHT. VSS ON RA. MEDICATIONS GIVEN ORDERED AND CHARTED. IV IN RIGHT AC-SL. 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 PATIENT INSTRUCTED TO USE CALL LIGHT WHEN NEEDING ASSISTANCE. HOURLY ROUNDS MADE. WILL CONTINUE WITH PLAN OF CARE AND NURSING TO MONITOR.
[2021-06-30] MEDS ORDERED: PACERONE 200 M200 M1 PO (08:41)
[2021-06-30 09:58] VITALS: BP 136/70
--- NOTE | 2021-06-30 12:25 | EKG ---
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 : 1950 Requested By: Vinicius Christianson Order Number: [id number] MD: Vinicius Christianson Measurements Intervals [place] Rate: 95 P: OR: QRS: -55 QRSD: 180 T: 18 QT: 430 QTc: 541 Interpretive Statements atrial paced rhythm with pac's RBBB and LAFB Baseline wander in lead(s) V6 Compared to ECG 06/28/2021 08:57:31 atrial fibrillation no longer noted Electronically Signed On 06-30-2021 12:24:59 CDT by Vinicius Christianson [email or web address] <ELECTRONICALLY SIGNED> By: Vinicius Christianson MD, [facility] 06/30/21 1224 1139 1139 Vinicius Christianson MD, [facility] /EPI
--- NOTE | 2021-06-30 13:46 | NUR ---
Dr Cates paged to complete the discharge process.
--- NOTE | 2021-06-30 14:02 | NUR ---
Dr Cates aware completed discharge orders are unable to print. Verbal discharge orders given.
--- NOTE | 2021-06-30 14:29 | NUR ---
Discharge instructions given.Verbalized understanding. One hard script given to the patient. All belonings packed by the patient and her . Wheeled to the car by staff. IV access removed. Monitor removed.
== END 2021-06-30 14:30 | disposition home or self-care (01) | DRG 314 ==
LOC: M.ERS 12:04 → M.TBA-ER 14:11 → M.2W 14:11 → M.TBA-ER 14:11 → M.2W 15:43
PROVIDERS: Family Medicine; Internal Medicine Cardiovascular Disease; Physician Assistant; ADMIT Internal Medicine; ATTEND Internal Medicine
DX: I30.9 Acute pericarditis, unspecified (principal); N17.0 Acute kidney failure with tubular necrosis; I48.20 Chronic atrial fibrillation, unspecified; I49.5 Sick sinus syndrome; G62.9 Polyneuropathy, unspecified; F32.9 Major depressive disorder, single episode, unspecified; D64.9 Anemia, unspecified; D72.829 Elevated white blood cell count, unspecified; I12.9 Hypertensive chronic kidney disease with stage 1 through stage 4 chronic kidney disease, or unspecified chronic kidney disease; N18.9 Chronic kidney disease, unspecified; Z20.822 Contact with and (suspected) exposure to COVID-19; Z85.3 Personal history of malignant neoplasm of breast; Z85.43 Personal history of malignant neoplasm of ovary; Z87.891 Personal history of nicotine dependence; Z95.0 Presence of cardiac pacemaker; Z79.899 Other long term (current) drug therapy; Z88.8 Allergy status to other drugs, medicaments and biological substances; Z91.09 Other allergy status, other than to drugs and biological substances; Z90.49 Acquired absence of other specified parts of digestive tract; Z98.49 Cataract extraction status, unspecified eye; Z90.710 Acquired absence of both cervix and uterus

== ENCOUNTER → 2021-08-01 | Outpatient (CLI) | payer OTHER, MEDICARE ==
[~2021-08-01] MED LIST changes: +ABILIFY 2 MG2 M1 PO; +AMIODARONE HCL400 MG PO; +AMITIZA 24 MCG24 MC1 PO; +ASA81BEC PO; +ASPIRIN325 PO; +CHLORTHALIDONE25 MG PO; +CLONIDINE HCL0.1 MG PO; +COLCHICINE0.6 M1 PO; +NORCO 10-325 T1 EACH PO; +OMEPRAZOLE 20 M20 M1 PO; +PACERONE 200 M200 M1 PO; +ROXIFOL-D TA500 UNIT PO; +SERTRALINE HCL100 MG; +VITAMIN C500 M1 PO
== END ==
LOC: M.RAD 15:29
PROVIDERS: ATTEND Internal Medicine Cardiovascular Disease
DX: J90 Pleural effusion, not elsewhere classified (principal); J98.11 Atelectasis

== ENCOUNTER 2021-10-21 07:19 | Observation (INO) | payer MEDICARE, OTHER ==
[~2021-10-21] VITALS: Ht 182.9 cm; Wt 90.7 kg
[~2021-10-21 07:19] MED LIST changes: +CLONAZEPAM 0.50.5 M1 PO; +MICARDIS40 MG PO; +MIRALAX119 GM PO; +NORVASC 2.5 MG2.5 MG PO; +VITAMIN C100 MG PO; +VITAMIN D-40010 MCG PO; +ZOLOFT100 MG PO
[2021-10-21] MEDS ORDERED: PACERONE200 MG PO (08:56)
[2021-10-21 14:29] VITALS: BP 129/65
[2021-10-21 15:53] VITALS: BP 135/73
[2021-10-21 19:40] VITALS: BP 128/71
[2021-10-22] VITALS: BP 112/49
[2021-10-22 03:36] VITALS: BP 124/70
[2021-10-22 10:34] VITALS: BP 128/67
[2021-10-22 12:05] VITALS: BP 106/56; BP 128/67
--- NOTE | 2021-10-22 13:41 | OP ---
[address] [address] OPERATIVE REPORT Name: EZ SOLITARIO Room: [address]R.#: [id number] Admission: 10/21/21 Attend Phys: Lucio Gamez II Discharge: Date of : 48 Report #: [id number] THIS REPORT FOR: cc: Yvonne Wesley MD, Ghazal A. MD Greiner, Robert F. 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 PROCEDURE: Right reverse total shoulder arthroplasty. SURGEON: Lucio Gamez II, DO. FOOD SERVICE DIRECTOR: COLBY Curry. ANESTHESIA: Per operative record. ESTIMATED BLOOD LOSS: 50 mL. ANTIBIOTICS: Per operative record. DRAINS: None. COMPLICATIONS: None. CONDITION: The patient stable to recovery room. IMPLANTS USED: Vikki Reunion reverse shoulder arthroplasty. DESCRIPTION OF PROCEDURE: The patient was taken to the operative suite, placed supine on the operating table and given appropriate anesthesia. The patient's affected shoulder was sterilely prepped and draped in a modified beach chair position. All bony prominences were well padded. Surgery began by an anterior deltopectoral incision, was carried down to subcutaneous tissues. The deltoid was retracted laterally and the capsule was entered. The subscapularis was reflected off the anterior aspect of the humerus. Biceps tendon had already been ruptured from a prior injury and prior surgery. The patient did have end-stage rotator cuff disease and high-riding humerus. Releases were performed around the anterior and inferior aspect of the humerus, taking care to avoid the axillary nerve and cephalic vein. The humerus was then brought out through the incision. Appropriate intramedullary guide rods were then utilized [place] [address] OPERATIVE REPORT Name: EZ SOLITARIO Room: [address] M.R.#: [id number] Admission: 10/21/21 Attend Phys: Lucio Gamez II Discharge: Date of : 48 Report #: [id number] the canal and appropriate cut was made to the head with appropriate version. The head was then removed. It was then broached up to appropriate size and the protective head covering was then placed. Shoulder was then reduced into the joint and retracted out of the way to proceed with glenoid preparation. The glenoid was resected of the labrum around the anterior and inferior parts as well as posterior part. Guide pin was then placed into the inferior portion of the glenoid and this was reamed in appropriate fashion. Glenoid baseplate was then secured utilizing appropriate screws and the eccentric glenosphere was then applied and trialled. The humerus was once again placed with the appropriate polyethylene, showed an excellent fit and fill and excellent stability of the shoulder about all range of motion. The finals were then selected. They were then malleted into position and once again reduced, showing excellent stability of the shoulder and excellent range of motion and no evidence of dislocation. Irrigation was performed, hemostasis was maintained with electrocautery. The deltopectoral incision was then closed utilizing a 1 Vicryl in running fashion to the deltoid. The skin was closed with 2-0 Vicryl and a running Monocryl stitch with Dermabond. Sterile dressing applied. The patient transported to recovery room in stable condition. Counts were correct throughout the procedure. <ELECTRONICALLY SIGNED> By: Lucio Gamez II, DO 10/22/21 1341 56 [id number] Gamez II, DO /nt
[2021-10-22 13:42] VITALS: BP 128/67
== END 2021-10-22 15:52 | disposition home health service (06) ==
LOC: M.3W 07:19 → M.TBA 07:19 → M.PRE 09:01 → M.TBA 09:09 → M.PRE 10:29 → M.3W 13:02 → M.PRE 13:45 → M.3W 10-22 15:52
PROVIDERS: ADMIT Internal Medicine; ATTEND Orthopaedic Surgery
DX: M19.011 Primary osteoarthritis, right shoulder (principal); Z20.822 Contact with and (suspected) exposure to COVID-19; K21.9 Gastro-esophageal reflux disease without esophagitis; I10 Essential (primary) hypertension; I51.9 Heart disease, unspecified; M19.90 Unspecified osteoarthritis, unspecified site; F32.9 Major depressive disorder, single episode, unspecified; G47.30 Sleep apnea, unspecified; I48.91 Unspecified atrial fibrillation; Z85.3 Personal history of malignant neoplasm of breast; Z85.43 Personal history of malignant neoplasm of ovary

== ENCOUNTER → 2021-12-10 | Outpatient (CLI) | payer MEDICARE, OTHER ==
[~2021-12-10] MED LIST changes: +PACERONE200 MG PO
== END ==
LOC: M.LAB 09:48
PROVIDERS: ATTEND Internal Medicine Gastroenterology
DX: Z01.812 Encounter for preprocedural laboratory examination (principal); Z20.822 Contact with and (suspected) exposure to COVID-19